=== PATIENT | female | born 1935 | race Caucasian/White ===

== ENCOUNTER 2017-02-02 22:46 | Emergency (ER) | payer MEDICARE, OTHER ==
[2017-02-02] MEDS ORDERED: Sodium Chloride 0.9% 1,000 ML ONE (22:53)
[2017-02-02] MEDS ORDERED: Sodium Chloride 0.9% 5 ML Syringe FLUSH PRN (23:00)
[2017-02-02] MEDS ORDERED: Ondansetron 4 MG/2 ML SDV ONE (23:19)
[2017-02-02] MEDS ORDERED: Ondansetron 4 MG/2 ML SDV IVPUSH ONE (23:22)
[2017-02-02] MEDS ORDERED: Sodium Chloride 0.9% 1,000 ML IV ONE (23:23)
--- NOTE | 2017-02-02 23:46 | EDM.PDOC ---
ED HPI GENERAL MEDICAL PROBLEM - General Chief Complaint: General Stated Complaint: n/v, fever Time Seen by Provider: 02/02/17 23:11 Source of Information: Reports: Patient, Family (son, dtr-n-law) History Limitations: Reports: No Limitations - History of Present Illness INITIAL COMMENTS - FREE TEXT/NARRATIVE: Patient presents with fever and several episodes of vomiting that started 12 hours ago. She hasn't kept anything down since breakfast. She has a cough that family says is chronic with her COPD. She denies dysuria but has some suprapubic pain. Temp was 101 at home. - Related Data Allergies Allergy/AdvReac Type Severity Reaction Status Date / Time hydrochlorothiazide Allergy Nausea and Verified 02/02/17 22:51 Vomiting latex Allergy Rash Verified 02/02/17 22:51 Tetanus Vaccines and Toxoid Allergy Cannot Verified 02/02/17 22:51 [Tetanus Vaccines & Toxoid] Remember Home Meds: Home Meds Acetaminophen [Tylenol Arthritis Pain] 1,300 mg PO Q8H PRN 01/31/15 [History] Cholecalciferol (Vitamin D3) [Vitamin D3] 1 cap PO ASDIRECTED 01/31/15 [History] Famotidine [Pepcid] 20 mg PO BID 01/31/15 [History] Gabapentin [Neurontin] 300 mg PO BID 01/31/15 [History] Insulin Glarg,Human.Rec.Analog [LantUS Solostar] 12 units SQ DAILY 01/31/15 [ History] Multivitamin [Multi-Vitamin Daily] 1 tab PO DAILY 01/31/15 [History] Sertraline [Zoloft] 100 mg PO DAILY 01/31/15 [History] atorvaSTATin [Lipitor] 10 mg PO BEDTIME 01/31/15 [History] traZODone 50 mg PO BEDTIME 01/31/15 [History] Aspirin [Ecotrin] 325 mg PO BID 02/06/15 [History] Allopurinol [Allopurinol] 100 mg PO DAILY 02/03/17 [History] Calcitriol [Rocaltrol] 0.25 mcg PO DAILY 02/03/17 [History] Calcium Citrate/Vitamin D3 [Calcium Citrate + D] 1 tab PO DAILY 02/03/17 [ History] Folic Acid 1 mg PO BID 02/03/17 [History] Xxvit E 400 intnl unit PO DAILY 02/03/17 [History] traZODone 50 mg PO BEDTIME 02/03/17 [History] Past Medical History Other Gastrointestinal History: 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 Other Genitourinary History: CRF Other Musculoskeletal History: Previous shoulder fracture, limited mobility to left upper extremity - Past Surgical History Other Musculoskeletal Surgeries/Procedures:: recent ankle surgery Social & Family History - Tobacco Use Smoking Status *Q: Former Smoker Years of Tobacco use: 50 Used Tobacco, but Quit: Yes Month Tobacco Last Used: 2012 Second Hand Smoke Exposure: Yes - Recreational Drug Use Recreational Drug Use: No ED ROS GENERAL - Review of Systems Review Of Systems: See Below Constitutional: Reports: Fever, Malaise HEENT: Denies: Vision Change Respiratory: Reports: Cough (chronic). Denies: Shortness of Breath Cardiovascular: Denies: Chest Pain, Lightheadedness, Syncope GI/Abdominal: Reports: Nausea, Vomiting : Denies: Dysuria, Flank Pain Musculoskeletal: Reports: No Symptoms Skin: Denies: Cyanosis, Jaundice, Mottled, Pallor, Diaphoresis Neurological: Denies: Confusion, Dizziness, Seizure, Syncope, Trouble Speaking Psychiatric: Denies: Agitation, Anxiety, Confusion ED EXAM, GENERAL - Physical Exam Exam: See Below Exam Limited By: No Limitations General Appearance: Alert, WD/WN, No Apparent Distress Eye Exam: Bilateral Eye: EOMI, Normal Inspection, PERRL Ears: Normal External Exam, Hearing Grossly Normal Nose: Normal Inspection, No Blood Throat/Mouth: Normal Inspection, Normal Lips, Normal Voice, No Airway Compromise Head: Atraumatic, Normocephalic Neck: Normal Inspection, Supple, Non-Tender, Full Range of Motion Respiratory/Chest: No Respiratory Distress, Crackles (bilat bases (mild to mod) unknown if this is acute or chronic) Cardiovascular: Normal Peripheral Pulses, Regular Rate, Rhythm, No Murmur GI/Abdominal: Normal Bowel Sounds, Soft, No Organomegaly, No Distention, Tender (lower abdomen) Back Exam: Normal Inspection, Full Range of Motion. No: CVA Tenderness (L), CVA Tenderness (R) Extremities: Normal Inspection, Normal Range of Motion, Non-Tender, No Pedal Edema Neurological: Alert, Oriented, Normal Cognition (some sign of chronic short- term memory loss per family), No Motor/Sensory Deficits Psychiatric: Normal Affect, Normal Mood Skin Exam: Warm, Dry, Intact, Normal Color, No Rash Course - Vital Signs Last Recorded V/S: Last Vital Signs Temp 101.8 F H 02/02/17 23:10 Pulse 96 02/02/17 23:12 Resp 22 H 02/02/17 23:12 BP 113/50 L 02/02/17 23:13 Pulse Ox 93 L 02/02/17 23:12 - Orders/Labs/Meds Meds: Medications Discontinued Medications Generic Name Dose Route Start Last Admin Trade Name Trisha PRN Reason Stop Dose Admin Sodium Chloride Confirm 02/02/17 22:53 Normal Saline Administered 02/02/17 22:54 Dose 1,000 mls @ as directed .ROUTE .STK-MED ONE - Re-Assessments/Exams Free Text/Narrative Re-Assessment/Exam: 02/03/17 00:16 Giving IV fluids and Zofran now. 02/03/17 00:49 Fluids are in and CXR doesn't look like anything acute to me; will wait for rad report. No UTI. WBC is normal. Temp came down nicely. Patient says she feels like trying to eat or drink something. 02/03/17 01:12 Patient eating a little and drank a half cup of water. When we took off the oxygen her sats dropped a bit but then remained steady 87-88%. With her COPD I' m not sure where her baseline is and her family doesn't know either. She seems quite comfortable at this level. Her temperature has improved significantly with the fluids and will give some Tylenol now. We have ruled out pneumonia and UTI, WBC is normal but with left shift (although ANC is normal). Will have her follow up in 1-2 days with her PCP for recheck. Discussed findings and recommendations with patient and her family. Patient stable at discharge. Departure - Departure Time of Disposition: 01:20 Disposition: Home, Self-Care 01 Condition: Good Clinical Impression: Dehydration Fever Qualifiers: Encounter type: initial encounter - Discharge Information Forms: ED Department Discharge Additional Instructions: 1. Try to drink 8 cups of water each day. 2. Take the Zofran as directed of you have nausea or vomiting again. 3. Follow up with your PCP on Thursday, sooner if fever, vomiting or other worsening. 4. Return to ER as needed.
[2017-02-03] MEDS ORDERED: Ondansetron 4 MG/2 ML SDV IVPUSH ONE (01:21)
[2017-02-03] MEDS ORDERED: Acetaminophen 500 MG Tab PO ONE (01:24)
[2017-02-03] MEDS ORDERED: Acetaminophen 325 MG Tab ONE (01:25)
[2017-02-03 01:31] VITALS: BP 97/47
== END 2017-02-03 01:47 | disposition home or self-care (01) ==
LOC: KA.ED 22:46
DX: E86.0 Dehydration (principal); R50.9 Fever, unspecified; N18.9 Chronic kidney disease, unspecified; Z91.040 Latex allergy status; Z88.8 Allergy status to other drugs, medicaments and biological substances; Z79.4 Long term (current) use of insulin; Z79.899 Other long term (current) drug therapy; Z87.891 Personal history of nicotine dependence
CPT/HCPCS: 36415; 71020; 80048; 81001; 82962; 83605; 85025; 87040; 96361; 96374; 96376; 99284; A9270; J2405; J7030

== ENCOUNTER 2021-02-24 00:05 | Observation (INO) | payer MEDICARE, OTHER ==
[2021-02-24 01:03] LABS: ANION GAP 13.6 mmol/L (5-15); CHLORIDE,CL 100 mmol/L (98-107); SODIUM,NA 139 mmol/L (136-145)
--- NOTE | 2021-02-24 01:06 | EDM.PDOC ---
ED HPI GENERAL MEDICAL PROBLEM - General Chief Complaint: Respiratory Problem Stated Complaint: low oxygenation Time Seen by Provider: 02/24/21 00:44 Source of Information: Reports: Patient, Long Term Records History Limitations: Reports: No Limitations - History of Present Illness INITIAL COMMENTS - FREE TEXT/NARRATIVE: Patient presents from [place] with report of low sats. She has a little cough that sounds loose. She denies dyspnea. She denies any chronic lung or heart problems. She has never needed oxygen before but today her sats dropped to 63%. They put oxygen on at 2 liters then up to 4 liters. She is 92% on 4 liters currently. 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: Oxygen - Related Data Allergies Allergy/AdvReac Type Severity Reaction Status Date / Time hydrochlorothiazide Allergy Nausea and Verified 02/24/21 00:48 Vomiting latex Allergy Rash Verified 02/24/21 00:48 Tetanus Vaccines and Toxoid Allergy Cannot Verified 02/24/21 00:48 [Tetanus Vaccines & Toxoid] Remember Home Meds: Home Meds Acetaminophen [Tylenol Arthritis Pain] 1,300 mg PO Q8H PRN 01/31/15 [History] Cholecalciferol (Vitamin D3) [Vitamin D3] 1 cap PO ASDIRECTED 01/31/15 [History] Famotidine [Pepcid] 20 mg PO BID 01/31/15 [History] Gabapentin [Neurontin] 300 mg PO BID 01/31/15 [History] Insulin Glarg,Human.Rec.Analog [LantUS Solostar] 16 units SQ DAILY 01/31/15 [History] Multivitamin [Multi-Vitamin Daily] 1 tab PO DAILY 01/31/15 [History] Sertraline [Zoloft] 100 mg PO DAILY 01/31/15 [History] atorvaSTATin [Lipitor] 10 mg PO BEDTIME 01/31/15 [History] Aspirin [Ecotrin EC] 325 mg PO DAILY 02/06/15 [History] Calcitriol [Rocaltrol] 0.25 mcg PO ASDIRECTED 02/03/17 [History] Calcium Citrate/Vitamin D3 [Calcium Citrate + D] 1 tab PO DAILY 02/03/17 [History] Folic Acid 2 tab PO DAILY 02/03/17 [History] allopurinoL [Allopurinol] 300 mg PO DAILY 02/03/17 [History] traZODone 50 mg PO BEDTIME 02/03/17 [History] Docusate Sodium 100 mg PO BID PRN 10/03/18 [History] Ondansetron [Ondansetron ODT] 4 mg PO Q6H PRN 02/24/21 [History] Semaglutide [Ozempic] 0.25 mg SQ Q7D 02/24/21 [History] tiZANidine [Zanaflex] 2 mg PO DAILY 02/24/21 [History] Past Medical History Respiratory History: Reports: Other (See Below) Other Respiratory History: smoker Gastrointestinal History: Reports: Other (See Below) Other Gastrointestinal History: 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 great and second toe on L foot Psychiatric History: Reports: Depression Endocrine/Metabolic History: Reports: Hypothyroidism, IDDM Dermatologic History: Reports: Other (See Below) Other Dermatologic History: brusing to arms - Past Surgical History Musculoskeletal Surgical History: Reports: Amputation, Other (See Below) Other Musculoskeletal Surgeries/Procedures:: recent ankle surgery. great and second toe on L foot Social & Family History - Caffeine Use Caffeine Use: Reports: Coffee, Soda ED ROS GENERAL - Review of Systems Review Of Systems: See Below Constitutional: Denies: Fever, Chills, Malaise, Weakness HEENT: Denies: Ear Pain, Throat Pain, Vision Change Respiratory: Reports: Cough. Denies: Shortness of Breath Cardiovascular: Denies: Chest Pain, Lightheadedness, Syncope Endocrine: Reports: Other (She started a new weekly insulin injection Semaglutide on Thursday, but didn't like it; she says gave her nausea and no appetite.) GI/Abdominal: Reports: Decreased Appetite, Nausea. Denies: Abdominal Pain, Vomiting : Denies: Dysuria, Flank Pain Musculoskeletal: Denies: Neck Pain, Shoulder Pain, Arm Pain, Back Pain, Hand Pain Skin: Denies: Cyanosis, Jaundice, Mottled, Pallor, Diaphoresis Neurological: Denies: Confusion, Dizziness, Seizure, Syncope, Trouble Speaking, Difficulty Walking Psychiatric: Denies: Agitation, Anxiety, Confusion ED EXAM, GENERAL - Physical Exam Exam: See Below Exam Limited By: No Limitations General Appearance: Alert, WD/WN, No Apparent Distress Eye Exam: Bilateral Eye: EOMI, Normal Inspection, PERRL Ears: Normal External Exam, Hearing Grossly Normal Nose: Normal Inspection, No Blood Throat/Mouth: Normal Inspection, Normal Lips, Normal Voice, No Airway Compromise Head: Atraumatic, Normocephalic Neck: Normal Inspection, Full Range of Motion Respiratory/Chest: No Respiratory Distress, Crackles (There are mild crackles in both lungs with an intermittent rub sound bilat). No: Rhonchi, Wheezing, Stridor Cardiovascular: Regular Rate, Rhythm, No Murmur GI/Abdominal: Soft, Non-Tender, No Organomegaly, No Distention, Other (long-term ostomy present left abdomen from ischemic bowel years ago) Back Exam: Normal Inspection, Full Range of Motion. No: CVA Tenderness (L), CVA Tenderness (R) Extremities: Normal Inspection, Normal Range of Motion, Non-Tender, No Pedal Edema Neurological: Alert, Oriented, Normal Cognition, No Motor/Sensory Deficits Psychiatric: Normal Affect, Normal Mood Skin Exam: Warm, Dry, Intact, Normal Color, No Rash Course - Vital Signs Last Recorded V/S: Last Vital Signs Temp 97.3 F 02/24/21 00:05 Pulse 79 02/24/21 02:29 Resp 20 02/24/21 02:29 BP 104/69 02/24/21 02:29 Pulse Ox 93 L 02/24/21 02:29 - Orders/Labs/Meds Orders: Active Orders 24 hr Category Date Time Status Patient Status [ADT] Routine ADT 02/24/21 02:29 Ordered Chest 2V [CR] Stat Exams 02/24/21 00:40 Ordered Labs: Laboratory Tests 02/24/21 02/24/21 02/24/21 Range/Units 00:13 00:35 00:35 WBC 6.33 (5.00-10.00) 10^3/uL RBC 4.57 (3.80-5.50) 10^6/uL Hgb 13.3 (12.0-16.0) g/dL Hct 41.2 (37.0-47.0) % MCV 90.2 (82.0-92.0) fL MCH 29.1 (27.0-31.0) pg MCHC 32.3 (32.0-36.0) g/dL RDW 15.1 H (11.5-14.5) % Plt Count 107 L (150-400) 10^3/uL MPV 9.5 (7.4-10.4) fL Immature Gran % (Auto) 1.1 (0.0-5.0) % Neut % (Auto) 71.2 H (50.0-70.0) % Lymph % (Auto) 17.5 L (20.0-40.0) % Wagoner % (Auto) 9.6 H (2.0-8.0) % Eos % (Auto) 0.6 L (1.0-3.0) % Baso % (Auto) 0.0 (0.0-1.0) % Neut # (Auto) 4.50 (2.50-7.00) 10^3/uL Lymph # (Auto) 1.11 (1.00-4.00) 10^3/uL Wagoner # (Auto) 0.61 (0.10-0.80) 10^3/uL Eos # (Auto) 0.04 L (0.10-0.30) 10^3/uL Baso # (Auto) 0.00 (0.00-0.10) 10^3/uL Immature Gran # (Auto) 0.07 (0.00-0.50) 10^3/uL Sodium 139 (136-145) mmol/L Potassium 3.8 (3.5-5.1) mmol/L Chloride 100 (98-107) mmol/L Carbon Dioxide 29.2 (21.0-32.0) mmol/L Anion Gap 13.6 (5-15) mmol/L BUN 20 H (7-18) mg/dL Creatinine 1.98 H (0.51-1.17) mg/dL Est Cr Clr Drug Dosing TNP Estimated GFR (MDRD) 24 mL/min Glucose 212 H (70-140) mg/dL POC Glucose 192 H (70-140) mg/dL Lactic Acid (0.4-2.0) mmol/L Calcium 9.2 (8.7-10.3) mg/dL Total Bilirubin 0.4 (0.2-1.0) mg/dL AST 18 (15-37) U/L ALT 22 (14-63) U/L Alkaline Phosphatase 89 (46-116) U/L B-Natriuretic Peptide (0-100) pg/mL Total Protein 7.1 (6.4-8.2) g/dL Albumin 3.11 L (3.40-5.00) g/dL SARS-CoV-2 RNA (RAISSA) (NEGATIVE) 02/24/21 02/24/21 02/24/21 Range/Units 00:35 00:35 01:16 WBC (5.00-10.00) 10^3/uL RBC (3.80-5.50) 10^6/uL Hgb (12.0-16.0) g/dL Hct (37.0-47.0) % MCV (82.0-92.0) fL MCH (27.0-31.0) pg MCHC (32.0-36.0) g/dL RDW (11.5-14.5) % Plt Count (150-400) 10^3/uL MPV (7.4-10.4) fL Immature Gran % (Auto) (0.0-5.0) % Neut % (Auto) (50.0-70.0) % Lymph % (Auto) (20.0-40.0) % Wagoner % (Auto) (2.0-8.0) % Eos % (Auto) (1.0-3.0) % Baso % (Auto) (0.0-1.0) % Neut # (Auto) (2.50-7.00) 10^3/uL Lymph # (Auto) (1.00-4.00) 10^3/uL Wagoner # (Auto) (0.10-0.80) 10^3/uL Eos # (Auto) (0.10-0.30) 10^3/uL Baso # (Auto) (0.00-0.10) 10^3/uL Immature Gran # (Auto) (0.00-0.50) 10^3/uL Sodium (136-145) mmol/L Potassium (3.5-5.1) mmol/L Chloride (98-107) mmol/L Carbon Dioxide (21.0-32.0) mmol/L Anion Gap (5-15) mmol/L BUN (7-18) mg/dL Creatinine (0.51-1.17) mg/dL Est Cr Clr Drug Dosing Estimated GFR (MDRD) mL/min Glucose (70-140) mg/dL POC Glucose (70-140) mg/dL Lactic Acid 1.0 (0.4-2.0) mmol/L Calcium (8.7-10.3) mg/dL Total Bilirubin (0.2-1.0) mg/dL AST (15-37) U/L ALT (14-63) U/L Alkaline Phosphatase (46-116) U/L B-Natriuretic Peptide 19 (0-100) pg/mL Total Protein (6.4-8.2) g/dL Albumin (3.40-5.00) g/dL SARS-CoV-2 RNA (RAISSA) Negative (NEGATIVE) - Re-Assessments/Exams Free Text/Narrative Re-Assessment/Exam: 02/24/21 02:32 CBC, BNP, LACTIC ACID normal. CMP stable with BUN, Creat at her baseline compared with last two labs. CXR shows a nonspecific interstitial prominence; question interstitial edema versus atypical pneumonia. She is still at 90% on 4 liters. No evidence of PE. Discussed case with Zena Payton, JESSICA and will admit for observation. She will start an antibiotic with consideration of atypical pneumonia. Discussed findings and treatment plan with patient and she agrees with plan. Stable at admission. Covid negative. 02/24/21 02:41 Running an EKG to check QT interval for antibiotic options. 02/24/21 02:50 EKG NSR QT 378. Departure - Departure Time of Disposition: 02:31 Disposition: Refer to Observation Condition: Good Clinical Impression: Hypoxemia requiring supplemental oxygen, Productive cough - Discharge Information Forms: ED Department Discharge Sepsis Event Note (ED) - Evaluation Sepsis Screening Result: No Definite Risk - Focused Exam Vital Signs: Vital Signs Temp Pulse Resp BP Pulse Ox 02/24/21 02:29 79 20 104/69 93 L 02/24/21 01:30 85 16 112/65 92 L 02/24/21 01:15 16 91 L 02/24/21 01:00 87 18 104/62 91 L 02/24/21 00:05 97.3 F 92 20 116/62 83 L - My Orders Last 24 Hours: My Active Orders 02/24/21 00:40 Chest 2V [CR] Stat 02/24/21 02:29 Patient Status [ADT] Routine - Assessment/Plan Last 24 Hours: My Active Orders 02/24/21 00:40 Chest 2V [CR] Stat 02/24/21 02:29 Patient Status [ADT] Routine
[2021-02-24] MEDS ORDERED: Sodium Chloride 0.9% 10 ML Syringe FLUSH PRN (03:00)
[2021-02-24] MEDS ORDERED: Docusate Sodium 100 MG Cap PO PRN (03:05)
[2021-02-24] MEDS ORDERED: Acetaminophen 650 MG Tab.ER PO PRN (03:05)
[2021-02-24] MEDS ORDERED: Calcitriol 0.25 MCG Cap PO SCH (03:15)
[2021-02-24] MEDS ORDERED: Famotidine 20 MG Tab PO SCH ×2 (03:15→09:00)
[2021-02-24] MEDS ORDERED: Non-Formulary Medication 1 Each (Semaglutide [Ozempic] 1 MG/0.75 ML Pen.Injctr) SQ SCH (03:15)
[2021-02-24] MEDS ORDERED: Azithromycin 500 MG in Sodium Chloride 0.9% 250 ML IV SCH (03:30)
--- NOTE | 2021-02-24 08:43 | CR ---
[id number] RAD/RAD Chest PA And Lateral EXAM: RAD Chest PA And Lateral CLINICAL DATA: INCREASING OXYGEN DEMAND COMPARISON: CORRELATION IS MADE WITH FEBRUARY 03, 2017 FINDINGS: Mild interstitial prominence is seen This may represent fibrosis, edema, or pneumonia The cardiac silhouette is moderately enlarged but stable There is a stent graft of the abdominal aorta There are chronic changes of the left shoulder IMPRESSION: MINIMAL INTERSTITIAL DISEASE, LIKELY FIBROSIS Ramirez Abdi MD 02/24/21 0841 Thank you for allowing us to participate in the care of your patient.
[2021-02-24] MEDS ORDERED: Non-Formulary Medication 1 Each (Multivitamin [Multi-Vitamin Daily] 1 EACH Tablet) PO SCH (09:00)
[2021-02-24] MEDS ORDERED: Aspirin 325 MG Tab.EC PO SCH (09:00)
[2021-02-24] MEDS ORDERED: Non-Formulary Medication 1 Each (Cholecalciferol (Vitamin D3) [Vitamin D3] 2,000 UNIT Caps PO SCH (09:00)
[2021-02-24] MEDS ORDERED: Non-Formulary Medication 1 Each (Insulin Glarg,Human.Rec.Analog 100 UNITS/ML Pen) SQ SCH (09:00)
[2021-02-24] MEDS ORDERED: tiZANidine 2 MG Tab PO SCH ×2 (09:00→21:00)
[2021-02-24] MEDS ORDERED: Non-Formulary Medication 1 Each (Sertraline [Zoloft] 100 MG Tablet) PO SCH (09:00)
[2021-02-24] MEDS: Gabapentin 300 MG Cap PO SCH ×2 (09:26→21:37)
[2021-02-24] MEDS: Folic Acid 1 MG Tab PO SCH ×2 (09:26→21:38)
[2021-02-24] MEDS: Allopurinol 100 MG Tab PO SCH (09:26)
[2021-02-24] MEDS: Cholecalciferol (Vitamin D3) 25 MCG Tab PO SCH (09:26)
[2021-02-24] MEDS: Sertraline 50 MG Tab PO SCH (09:27)
[2021-02-24] MEDS: Multivitamins with Minerals/Iron/Folic Acid/Lycopene Tab PO SCH (09:28)
[2021-02-24] MEDS: Calcium Citrate/Vitamin D3 315 MG-250 Unit Tab PO SCH (09:28)
--- NOTE | 2021-02-24 11:07 | PCM.HP.2 ---
H&P History of Present Illness - General Date of Service: 02/24/21 Admit Problem/Dx: Admission Diagnosis/Problem Admission Diagnosis/Problem Hypoxemia requiring supplemental oxygen Source of Information: Patient, Old Records, RN - Related Data Allergies/Adverse Reactions: Allergies Allergy/AdvReac Type Severity Reaction Status Date / Time hydrochlorothiazide Allergy Nausea and Verified 02/24/21 00:48 Vomiting latex Allergy Rash Verified 02/24/21 00:48 levofloxacin Allergy Nausea and Verified 02/24/21 03:28 Vomiting Tetanus Vaccines and Toxoid Allergy Cannot Verified 02/24/21 00:48 [Tetanus Vaccines & Toxoid] Remember Home Medications: Home Meds Acetaminophen [Tylenol Arthritis Pain] 1,300 mg PO Q8H PRN 01/31/15 [History] Cholecalciferol (Vitamin D3) [Vitamin D3] 1 cap PO DAILY 01/31/15 [History] Famotidine [Pepcid] 20 mg PO Q48H 01/31/15 [History] Gabapentin [Neurontin] 300 mg PO BID 01/31/15 [History] Insulin Glarg,Human.Rec.Analog [LantUS Solostar] 20 units SQ DAILY 01/31/15 [History] Multivitamin [Multi-Vitamin Daily] 1 tab PO DAILY 01/31/15 [History] Sertraline [Zoloft] 100 mg PO DAILY 01/31/15 [History] atorvaSTATin [Lipitor] 10 mg PO BEDTIME 01/31/15 [History] Aspirin [Ecotrin EC] 325 mg PO DAILY 02/06/15 [History] Calcitriol [Rocaltrol] 0.25 mcg PO ASDIRECTED 02/03/17 [History] Calcium Citrate/Vitamin D3 [Calcium Citrate + D] 1 tab PO DAILY 02/03/17 [History] Folic Acid 1 tab PO BID 02/03/17 [History] allopurinoL [Allopurinol] 200 mg PO DAILY 02/03/17 [History] traZODone 50 mg PO BEDTIME 02/03/17 [History] Docusate Sodium 100 mg PO BID PRN 10/03/18 [History] Ondansetron [Ondansetron ODT] 4 mg PO Q6H PRN 02/24/21 [History] Semaglutide [Ozempic] 0.25 mg SQ Q7D 02/24/21 [History] tiZANidine [Zanaflex] 2 mg PO DAILY 02/24/21 [History] Albuterol/Ipratropium [DuoNeb 3.0-0.5 MG/3 ML] 3 ml NEB Q6HRRT #60 neb 02/25/21 [Rx] Apixaban [Eliquis] 2.5 mg PO BID 30 Days #30 tablet 02/25/21 [Rx] Past Medical History HEENT History: Reports: Impaired Vision Cardiovascular History: Reports: Aneurysm, Blood Clots/VTE/DVT, High Cholesterol, Hypertension, PVD Other Cardiovascular History: Pt is very poor historian, unsure but thinks she "may have had blood clot in left leg." Respiratory History: Reports: Bronchitis, Recurrent, Other (See Below) Other Respiratory History: smoker Gastrointestinal History: Reports: GERD, Other (See Below) Other Gastrointestinal History: 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 Pt states the fistula is "no good.". CKD stage 4 [employer] History: Reports: Musculoskeletal History: Reports: Amputation, RA, Other (See Below) Other Musculoskeletal History: Previous left shoulder fracture, limited mobility to left upper extremity,. h/o bursitis of left shoulder. h/o tendonitis. 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 Oncologic (Cancer) History: Reports: Basal Cell Carcinoma, Other (See Below) Other Oncologic History: Nose Dermatologic History: Reports: Other (See Below) Other Dermatologic History: brusing to arms - Past Surgical History Musculoskeletal Surgical History: Reports: Amputation, Other (See Below) Other Musculoskeletal Surgeries/Procedures:: recent ankle surgery. great and second toe on L foot Social & Family History - Tobacco Use Tobacco Use Status *Q: Former Tobacco User Years of Tobacco use: 62 Used Tobacco, but Quit: Yes Month/Year Tobacco Last Used: Sep 2017, pt not really sure, but "it's been 2-3 years." - Caffeine Use Caffeine Use: Reports: Coffee, Soda H&P Review of Systems - Review of Systems: Review Of Systems: See Below General: Denies: Fever, Chills, Malaise, Weakness, Fatigue, Night Sweats, Decreased Appetite HEENT: Reports: No Symptoms Pulmonary: Reports: Cough. Denies: Shortness of Breath, Sputum, Hemoptysis Cardiovascular: Denies: Chest Pain, Palpitations, Dyspnea on Exertion, Orthopnea, PND, Edema Gastrointestinal: Reports: No Symptoms Genitourinary: Reports: No Symptoms Musculoskeletal: Reports: No Symptoms Skin: Reports: No Symptoms Psychiatric: Reports: No Symptoms Neurological: Reports: No Symptoms Exam - Exam Exam: See Below - Vital Signs Vital Signs: Last Vital Signs Temp 97.2 F 02/24/21 06:42 Pulse 76 02/24/21 06:42 Resp 20 02/24/21 06:42 BP 104/59 L 02/24/21 06:42 Pulse Ox 90 L 02/24/21 09:00 Weight: 155 lb 1.6 oz - Exam Quality Assessment: Supplemental Oxygen General: Alert Neck: Supple, Trachea Midline Lungs: Rales, Wheezing (mild expiratory wheezing) Cardiovascular: Regular Rate, Regular Rhythm GI/Abdominal Exam: Normal Bowel Sounds, Soft, Non-Tender, Other (colostomy) (Female) Exam: Deferred Rectal (Female) Exam: Deferred Extremities: Normal Inspection, Non-Tender, No Pedal Edema. No: Schuyler's Sign, Leg Pain, Redness Skin: Warm, Dry, Intact Neuro Extensive - Mental Status: Alert Psychiatric: Alert, Normal Affect, Normal Mood - Patient Data Lab Results Last 24 hrs: Laboratory Results - last 24 hr 02/24/21 02/24/21 02/24/21 Range/Units 00:13 00:35 00:35 WBC 6.33 (5.00-10.00) 10^3/uL RBC 4.57 (3.80-5.50) 10^6/uL Hgb 13.3 (12.0-16.0) g/dL Hct 41.2 (37.0-47.0) % MCV 90.2 (82.0-92.0) fL MCH 29.1 (27.0-31.0) pg MCHC 32.3 (32.0-36.0) g/dL RDW 15.1 H (11.5-14.5) % Plt Count 107 L (150-400) 10^3/uL MPV 9.5 (7.4-10.4) fL Immature Gran % (Auto) 1.1 (0.0-5.0) % Neut % (Auto) 71.2 H (50.0-70.0) % Lymph % (Auto) 17.5 L (20.0-40.0) % [place] % (Auto) 9.6 H (2.0-8.0) % Eos % (Auto) 0.6 L (1.0-3.0) % Baso % (Auto) 0.0 (0.0-1.0) % Neut # (Auto) 4.50 (2.50-7.00) 10^3/uL Lymph # (Auto) 1.11 (1.00-4.00) 10^3/uL [place] # (Auto) 0.61 (0.10-0.80) 10^3/uL Eos # (Auto) 0.04 L (0.10-0.30) 10^3/uL Baso # (Auto) 0.00 (0.00-0.10) 10^3/uL Immature Gran # (Auto) 0.07 (0.00-0.50) 10^3/uL Sodium 139 (136-145) mmol/L Potassium 3.8 (3.5-5.1) mmol/L Chloride 100 (98-107) mmol/L Carbon Dioxide 29.2 (21.0-32.0) mmol/L Anion Gap 13.6 (5-15) mmol/L BUN 20 H (7-18) mg/dL Creatinine 1.98 H (0.51-1.17) mg/dL Est Cr Clr Drug Dosing TNP Estimated GFR (MDRD) 24 mL/min Glucose 212 H (70-140) mg/dL POC Glucose 192 H (70-140) mg/dL Lactic Acid (0.4-2.0) mmol/L Calcium 9.2 (8.7-10.3) mg/dL Total Bilirubin 0.4 (0.2-1.0) mg/dL AST 18 (15-37) U/L ALT 22 (14-63) U/L Alkaline Phosphatase 89 (46-116) U/L B-Natriuretic Peptide (0-100) pg/mL Total Protein 7.1 (6.4-8.2) g/dL Albumin 3.11 L (3.40-5.00) g/dL SARS-CoV-2 RNA (RAISSA) (NEGATIVE) 02/24/21 02/24/21 02/24/21 Range/Units 00:35 00:35 01:16 WBC (5.00-10.00) 10^3/uL RBC (3.80-5.50) 10^6/uL Hgb (12.0-16.0) g/dL Hct (37.0-47.0) % MCV (82.0-92.0) fL MCH (27.0-31.0) pg MCHC (32.0-36.0) g/dL RDW (11.5-14.5) % Plt Count (150-400) 10^3/uL MPV (7.4-10.4) fL Immature Gran % (Auto) (0.0-5.0) % Neut % (Auto) (50.0-70.0) % Lymph % (Auto) (20.0-40.0) % [place] % (Auto) (2.0-8.0) % Eos % (Auto) (1.0-3.0) % Baso % (Auto) (0.0-1.0) % Neut # (Auto) (2.50-7.00) 10^3/uL Lymph # (Auto) (1.00-4.00) 10^3/uL [place] # (Auto) (0.10-0.80) 10^3/uL Eos # (Auto) (0.10-0.30) 10^3/uL Baso # (Auto) (0.00-0.10) 10^3/uL Immature Gran # (Auto) (0.00-0.50) 10^3/uL Sodium (136-145) mmol/L Potassium (3.5-5.1) mmol/L Chloride (98-107) mmol/L Carbon Dioxide (21.0-32.0) mmol/L Anion Gap (5-15) mmol/L BUN (7-18) mg/dL Creatinine (0.51-1.17) mg/dL Est Cr Clr Drug Dosing Estimated GFR (MDRD) mL/min Glucose (70-140) mg/dL POC Glucose (70-140) mg/dL Lactic Acid 1.0 (0.4-2.0) mmol/L Calcium (8.7-10.3) mg/dL Total Bilirubin (0.2-1.0) mg/dL AST (15-37) U/L ALT (14-63) U/L Alkaline Phosphatase (46-116) U/L B-Natriuretic Peptide 19 (0-100) pg/mL Total Protein (6.4-8.2) g/dL Albumin (3.40-5.00) g/dL SARS-CoV-2 RNA (RAISSA) Negative (NEGATIVE) Result Diagrams: 02/25/21 07:15 02/25/21 07:15 Sepsis Event Note - Evaluation Sepsis Screening Result: No Definite Risk - Focused Exam Vital Signs: Vital Signs Temp Pulse Resp BP Pulse Ox Pulse Ox 02/24/21 09:00 90 L 02/24/21 06:42 97.2 F 76 20 104/59 L 92 L 02/24/21 03:03 97.3 F 76 20 113/68 92 L 02/24/21 03:01 93 L 02/24/21 02:29 79 20 104/69 93 L 02/24/21 01:30 85 16 112/65 92 L 02/24/21 01:15 16 91 L 02/24/21 01:00 87 18 104/62 91 L 02/24/21 00:05 97.3 F 92 20 116/62 83 L - Problem List (1) Hypoxemia requiring supplemental oxygen SNOMED Code(s): 616407710 ICD Code: R09.02 - HYPOXEMIA; Z99.81 - DEPENDENCE ON SUPPLEMENTAL OXYGEN Status: Acute (2) Acute respiratory failure with hypoxia SNOMED Code(s): 96326203, 657555173 ICD Code: J96.01 - ACUTE RESPIRATORY FAILURE WITH HYPOXIA Status: Acute Problem List Initiated/Reviewed/Updated: Yes Orders Last 24hrs: Active Orders 24 hr Category Date Time Status Patient Status [ADT] Routine ADT 02/24/21 02:29 Active Patient Status [ADT] Routine ADT 02/24/21 03:01 Active Oxygen Therapy [RC] DAILY Care 02/24/21 03:01 Active Up With Assistance [RC] DAILY Care 02/24/21 03:00 Active Vital Signs [RC] 03,07,11,15,19,23 Care 02/24/21 03:01 Active [employer] Diet [DIET] Diet 02/24/21 Breakfast Active Acetaminophen [Tylenol Arthritis Pain] Med 02/24/21 03:05 Active 1,300 mg PO Q8H PRN Aspirin [Ecotrin] Med 02/24/21 09:00 Active 325 mg PO DAILY Azithromycin [Zithromax] 500 mg Med 02/24/21 03:30 Active Sodium Chloride 0.9% [Normal Saline] 250 ml IV Q24H Calcium Citrate/Vitamin D3 [Calcium Citrate + D] Med 02/24/21 09:00 Active 1 tab PO DAILY Cholecalciferol (Vitamin D3) [Vitamin D3] Med 02/24/21 09:00 Active 50 mcg PO DAILY Docusate Sodium [Colace] Med 02/24/21 03:05 Active 100 mg PO BID PRN FA/Lycopene/Lut/MV,Ca,Iron,Min [Centrum] Med 02/24/21 09:00 Active 1 tab PO DAILY Famotidine [Pepcid] Med 02/24/21 09:00 Active 20 mg PO Q48H Folic Acid Med 02/24/21 09:00 Active 1 mg PO BID Gabapentin [Neurontin] Med 02/24/21 09:00 Active 300 mg PO BID Insulin Glargine,Hum.Rec.Anlog [Semglee Pen] Med 02/24/21 21:00 Active 20 unit SUBCUT BEDTIME Sertraline [Zoloft] Med 02/24/21 09:00 Active 100 mg PO DAILY Sodium Chloride 0.9% [Saline Flush] Med 02/24/21 03:00 Active 10 ml FLUSH Q8HR PRN allopurinoL [Zyloprim] Med 02/24/21 09:00 Active 200 mg PO DAILY atorvaSTATin [Lipitor] Med 02/24/21 21:00 Active 10 mg PO BEDTIME calcitrioL [Rocaltrol] Med 02/25/21 09:00 Active 0.25 mcg PO MoFr@0900 tiZANidine [Zanaflex] Med 02/24/21 21:00 Active 2 mg PO BEDTIME traZODone Med 02/24/21 21:00 Active 50 mg PO BEDTIME Saline Lock Insert [OM.PC] Routine Oth 02/24/21 03:00 Ordered Resuscitation Status Routine Resus Stat 02/24/21 03:00 Ordered EKG 12 Lead [EK] Stat Ther 02/24/21 02:36 Ordered Medication Orders Acetaminophen (Acetaminophen 650 Mg Tab.Er) 1,300 mg PO Q8H PRN PRN Reason: Pain Allopurinol (Allopurinol 100 Mg Tab) 200 mg PO DAILY [facility] Last Admin: 02/24/21 09:26 Dose: 200 mg Documented by: ULISES Aspirin (Aspirin 325 Mg Tab.Ec) 325 mg PO DAILY [facility] Last Admin: 02/24/21 09:26 Dose: 325 mg Documented by: ULISES Atorvastatin Calcium (Atorvastatin 10 Mg Tab) 10 mg PO BEDTIME [facility] Calcitriol (Calcitriol 0.25 Mcg Cap) 0.25 mcg PO MoFr@0900 [facility] Calcium Citrate (Calcium Citrate/Vitamin D3 315 Mg-250 Unit Tab) 1 tab PO DAILY [facility] Last Admin: 02/24/21 09:28 Dose: 1 tab Documented by: ULISES Cholecalciferol (Cholecalciferol (Vitamin D3) 25 Mcg Tab) 50 mcg PO DAILY [facility] Last Admin: 02/24/21 09:26 Dose: 50 mcg Documented by: ULISES Docusate Sodium (Docusate Sodium 100 Mg Cap) 100 mg PO BID PRN PRN Reason: Constipation Famotidine (Famotidine 20 Mg Tab) 20 mg PO Q48H [facility] Last Admin: 02/24/21 09:28 Dose: 20 mg Documented by: ULISES Folic Acid (Folic Acid 1 Mg Tab) 1 mg PO BID [facility] Last Admin: 02/24/21 09:26 Dose: 1 mg Documented by: ULISES Gabapentin (Gabapentin 300 Mg Cap) 300 mg PO BID [facility] Last Admin: 02/24/21 09:26 Dose: 300 mg Documented by: ULISES Azithromycin 500 mg/ Sodium (Chloride) 250 mls @ 250 mls/hr IV Q24H [facility] Last Admin: 02/24/21 03:53 Dose: 250 mls/hr Documented by: DANIELA Insulin Glargine (Insulin Glargine,Hum.Rec.Anlog 100 Unit/Ml 3 Ml Pen) 20 unit SUBCUT BEDTIME [facility] Multivitamins/Minerals (Multivitamins With Minerals/Iron/Folic Acid/Lycopene Tab) 1 tab PO DAILY [facility] Last Admin: 02/24/21 09:28 Dose: 1 tab Documented by: ULISES Sertraline HCl (Sertraline 50 Mg Tab) 100 mg PO DAILY [facility] Last Admin: 02/24/21 09:27 Dose: 100 mg Documented by: ULISES Sodium Chloride (Sodium Chloride 0.9% 10 Ml Syringe) 10 ml FLUSH Q8HR PRN PRN Reason: keep vein open Tizanidine HCl (Tizanidine 2 Mg Tab) 2 mg PO BEDTIME [facility] Trazodone HCl (Trazodone 50 Mg Tab) 50 mg PO BEDTIME [facility] Assessment/Plan Comment:: HPI summary: This is an 85 year old female resident of [facility] who was bro ught to the ER via EMS for acute hypoxia. Per senior care staff patient was complaining of dizziness with noted oxygen saturations in the 60%. She was placed on 4L NC with improvement in her symptoms. no known history of hypoxia and no history of chronic oxygen requirement. On arrival to ER patient was alert and in no distress. She reportedly asymptomatic with only complaints of a mild cough. She denied SOB or wheezing. She denied chronic lung or cardiac problems. ED work-up: - CBC- normal WBC count. mild increase in percent neutrophils - Renal and electrolytes at baseline - BNP normal. - lactic acid normal - Chest xray- initial radiology read questioning possible interstitial edema versus atypical pneumonia. - COVID negative. - EKG- NSR. normal QTc interval. - Vitals normal aside from hypoxia requiring 4L supplemental oxygen dropping to low 80s on room air. Hospital course: 02/24/21- Patient admitted during overnight hours with no overnight concerns. Given IV Azithromycin for question of atypical pneumonia. Patient tolerated well. Patient lying in bed with no complaints and is in no acute distress. She denies any chest pain, palpitations, SOB, difficulty breathing, wheezing. she reports a cough. lung with rales to the bases and mild expiratory wheezing t/o. She has been on telemetry with no tachycardia and remains in sinus rhythm. she reports a strong history of tobacco use 60 years at approximately 1PPD. No hi story of DVT or PE. Denies any lower extremity edema, pain, redness, or warmth. patient expresses desire to go back to [facility] today. Hospitalization problems: # Acute hypoxic respiratory failure- - requiring 4L supplemental oxygen - Etiology of hypoxia not entirely clear. plan for CT chest without contrast today - start duo Nebs # possible atypical pneumonia- question atypical pneumonia on initial radiology x-ray read - Patient given Azithromycin 500mg IV on admission. EKG with normal QTc. monitored on telemetry. - will assess continued azithromycin use pending CT findings. # COPD likely- strong history of tobacco use. Chronic bronchitis noted on problems list. - question possible acute exacerbation. - No PFTs in the past and is not typically on pharmacologic management. - start duonebs - consider corticosteroid burst pending CT findings. # CKD, stage 4 - at baseline. - avoid nephrotoxic agent- CT contrast, NSAIDs # Thrombocytopenia, chronic - mild. platelets at baseline. - monitor platelets daily with starting lovenox. discontinue if platelet drop below 100,000. Chronic, stable conditions: # type 2 DM- on ozempic weekly (recently started), Basaglar 20units at HS. # PVD- on ASA # HLD- lipitor # AAA- s/p AAA repair. on ASA # depression- zoloft 100mg. # Gout- allopurinol. # insomnia/sleep disorder- trazodone. # CKD-MBD- Calcitriol. # history of tobacco use. # Chronic left shoulder/arm pain- on tizanidine, gabapentin? # history of ischemic bowel- s/p Colon resection- colostomy MISC medications/vitamins/supplements- folic acid Hospitalization details: # FEN: SL. ADA diet. # PPX: change pepcid to daily for GI ppx and given medication profile. start lovenox ppx with renal dosing (platelets 107,000). Will hold ASA with starting lovenox # Code status: DNR/DNI # Disposition: - patient strongly desires to go back to [facility]. She however is agreeable to staying for further diagnostic work-up. Will continue observation for further diagnostic evaluation - CT chest today WITHOUT contrast due to renal function - Start duo nebs. - Wells low probability for PE. Will need to consider D-dimer if negative CT chest without clear etiology of Hypoxia. Unable to perform CTA of the chest due to renal impairment. limited resources available locally including ultrasound on the weekend or V/Q scan.
--- NOTE | 2021-02-24 15:07 | CT ---
[id number] CT/CT Chest WO IV Exam: CT Chest WO IV Clinical Data: HYPOXIA COMPARISON: CORRELATION IS MADE WITH THE CURRENT CHEST RADIOGRAPH FINDINGS: There is mild atelectasis at both lung bases. There is underlying centrilobular emphysema. There is no mediastinal mass or adenopathy There are heavy atheromatous calcifications There is moderate splenomegaly. There is dilated bowel in the upper abdomen The stomach is slightly distended. There is prominence of the thyroid bilaterally appearing stable since the CAT scan of July 2009 There is left-sided nephrolithiasis2 The stent graft of the aorta is seen There appears to be a left renal artery stent IMPRESSION: Bibasilar discoid atelectasis Underlying centrilobular emphysema Ramirez Abdi MD 02/24/21 [id number] Thank you for allowing us to participate in the care of your patient.
[2021-02-24] MEDS: predniSONE 20 MG Tab PO SCH (16:00)
[2021-02-24] MEDS ORDERED: Enoxaparin 30 MG/0.3 ML Syringe SUBCUT SCH (17:00)
[2021-02-24] MEDS: Albuterol/Ipratropium 3.0-0.5 MG/3 ML Neb Soln NEB SCH ×2 (17:30→22:18)
[2021-02-24] MEDS ORDERED: Insulin Glargine,Hum.Rec.Anlog 100 UNIT/ML 3 ML Pen SUBCUT SCH (21:00)
[2021-02-24] MEDS ORDERED: atorvaSTATin 10 MG Tab PO SCH (21:00)
[2021-02-24] MEDS ORDERED: traZODone 50 MG Tab PO SCH (21:00)
[2021-02-25] MEDS: Albuterol/Ipratropium 3.0-0.5 MG/3 ML Neb Soln NEB SCH ×2 (06:01→11:30)
[2021-02-25] MEDS: Multivitamins with Minerals/Iron/Folic Acid/Lycopene Tab PO SCH (08:25)
[2021-02-25] MEDS: predniSONE 20 MG Tab PO SCH (08:25)
[2021-02-25] MEDS: Cholecalciferol (Vitamin D3) 25 MCG Tab PO SCH (08:25)
[2021-02-25] MEDS: Sertraline 50 MG Tab PO SCH (08:25)
[2021-02-25] MEDS: Gabapentin 300 MG Cap PO SCH (08:25)
[2021-02-25] MEDS: Folic Acid 1 MG Tab PO SCH (08:26)
[2021-02-25] MEDS: Calcium Citrate/Vitamin D3 315 MG-250 Unit Tab PO SCH (08:26)
[2021-02-25] MEDS: Allopurinol 100 MG Tab PO SCH (08:26)
[2021-02-25 08:43] LABS: ANION GAP 13.9 mmol/L (5-15)
[2021-02-25] MEDS ORDERED: Calcitriol 0.25 MCG Cap PO SCH (09:00)
[2021-02-25] MEDS ORDERED: Famotidine 20 MG Tab PO SCH (09:00)
[2021-02-25] MEDS ORDERED: Apixaban 5 MG Tab PO SCH (11:00)
[2021-02-25 11:18] VITALS: BP 128/73
[2021-02-25 11:54] VITALS: PULSE 96
--- NOTE | 2021-02-26 10:36 | PCM.DCSUM1 ---
Discharge Summary - Discharge Data Discharge Date: 02/25/21 Discharge Disposition: DC/Tfer to SNF 03 Condition: Fair - Discharge Plan Prescriptions/Med Rec: Albuterol/Ipratropium [DuoNeb 3.0-0.5 MG/3 ML] 3 ml NEB Q6HRRT #60 neb Apixaban [Eliquis] 2.5 mg PO BID 30 Days #30 tablet Home Medications: Home Meds Acetaminophen [Tylenol Arthritis Pain] 1,300 mg PO Q8H PRN 01/31/15 [History] Cholecalciferol (Vitamin D3) [Vitamin D3] 1 cap PO DAILY 01/31/15 [History] Famotidine [Pepcid] 20 mg PO Q48H 01/31/15 [History] Gabapentin [Neurontin] 300 mg PO BID 01/31/15 [History] Insulin Glarg,Human.Rec.Analog [LantUS Solostar] 20 units SQ DAILY 01/31/15 [History] Multivitamin [Multi-Vitamin Daily] 1 tab PO DAILY 01/31/15 [History] Sertraline [Zoloft] 100 mg PO DAILY 01/31/15 [History] atorvaSTATin [Lipitor] 10 mg PO BEDTIME 01/31/15 [History] Aspirin [Ecotrin EC] 325 mg PO DAILY 02/06/15 [History] Calcitriol [Rocaltrol] 0.25 mcg PO ASDIRECTED 02/03/17 [History] Calcium Citrate/Vitamin D3 [Calcium Citrate + D] 1 tab PO DAILY 02/03/17 [History] Folic Acid 1 tab PO BID 02/03/17 [History] allopurinoL [Allopurinol] 200 mg PO DAILY 02/03/17 [History] traZODone 50 mg PO BEDTIME 02/03/17 [History] Docusate Sodium 100 mg PO BID PRN 10/03/18 [History] Ondansetron [Ondansetron ODT] 4 mg PO Q6H PRN 02/24/21 [History] Semaglutide [Ozempic] 0.25 mg SQ Q7D 02/24/21 [History] tiZANidine [Zanaflex] 2 mg PO DAILY 02/24/21 [History] Albuterol/Ipratropium [DuoNeb 3.0-0.5 MG/3 ML] 3 ml NEB Q6HRRT #60 neb 02/25/21 [Rx] Apixaban [Eliquis] 2.5 mg PO BID 30 Days #30 tablet 02/25/21 [Rx] - Discharge Summary/Plan Comment DC Time >30 min.: Yes Total # of Minutes for Discharge Time: 90 min - General Info Functional Status: Reports: Pain Controlled, Other (Hypoxic on ambulation) - Review of Systems General: Denies: Fever, Weakness HEENT: Reports: No Symptoms Pulmonary: Reports: Shortness of Breath. Denies: Cough, Sputum, Hemoptysis, Wheezing Cardiovascular: Reports: No Symptoms Gastrointestinal: Reports: No Symptoms Genitourinary: Reports: No Symptoms Musculoskeletal: Reports: No Symptoms Skin: Reports: No Symptoms Neurological: Reports: No Symptoms Psychiatric: Reports: No Symptoms - Patient Data Vitals - Most Recent: Last Vital Signs Temp 97.5 F 02/25/21 11:00 Pulse 96 02/25/21 11:30 Resp 20 02/25/21 11:00 BP 128/73 02/25/21 11:00 Pulse Ox 94 L 02/25/21 11:30 Weight - Most Recent: 155 lb 1.6 oz Lab Results - Last 24 hrs: Laboratory Results - last 24 hr 02/25/21 Range/Units 11:45 POC Glucose 229 H (70-140) mg/dL Med Orders - Current: Current Medications Discontinued Medications Acetaminophen (Acetaminophen 650 Mg Tab.Er) 1,300 mg PO Q8H PRN PRN Reason: Pain Albuterol/Ipratropium (Albuterol/Ipratropium 3.0-0.5 Mg/3 Ml Neb Soln) 3 ml NEB Q6HRRT [facility] Last Admin: 02/25/21 11:30 Dose: 3 ml Documented by: Allopurinol (Allopurinol 100 Mg Tab) 200 mg PO DAILY [facility] Last Admin: 02/25/21 08:26 Dose: 200 mg Documented by: Apixaban (Apixaban 5 Mg Tab) 2.5 mg PO BID [facility] Last Admin: 02/25/21 11:19 Dose: 2.5 mg Documented by: Aspirin (Aspirin 325 Mg Tab.Ec) 325 mg PO DAILY [facility] Last Admin: 02/24/21 09:26 Dose: 325 mg Documented by: Atorvastatin Calcium (Atorvastatin 10 Mg Tab) 10 mg PO BEDTIME [facility] Last Admin: 02/24/21 21:37 Dose: 10 mg Documented by: Calcitriol (Calcitriol 0.25 Mcg Cap) 0.25 mcg PO ASDIRECTED [facility] Calcitriol (Calcitriol 0.25 Mcg Cap) 0.25 mcg PO MoFr@0900 [facility] Last Admin: 02/25/21 08:25 Dose: 0.25 mcg Documented by: Calcium Citrate (Calcium Citrate/Vitamin D3 315 Mg-250 Unit Tab) 1 tab PO DAILY [facility] Last Admin: 02/25/21 08:26 Dose: 1 tab Documented by: Cholecalciferol (Cholecalciferol (Vitamin D3) 25 Mcg Tab) 50 mcg PO DAILY [facility] Last Admin: 02/25/21 08:25 Dose: 50 mcg Documented by: Docusate Sodium (Docusate Sodium 100 Mg Cap) 100 mg PO BID PRN PRN Reason: Constipation Last Admin: 02/25/21 08:30 Dose: 100 mg Documented by: Enoxaparin Sodium (Enoxaparin 30 Mg/0.3 Ml Syringe) 30 mg SUBCUT Q24H [facility] Last Admin: 02/24/21 17:35 Dose: 30 mg Documented by: Famotidine (Famotidine 20 Mg Tab) 20 mg PO Q48H [facility] Last Admin: 02/24/21 04:20 Dose: Not Given Documented by: Famotidine (Famotidine 20 Mg Tab) 20 mg PO Q48H [facility] Last Admin: 02/24/21 09:28 Dose: 20 mg Documented by: Famotidine (Famotidine 20 Mg Tab) 20 mg PO DAILY [facility] Last Admin: 02/25/21 08:25 Dose: 20 mg Documented by: Folic Acid (Folic Acid 1 Mg Tab) 1 mg PO BID [facility] Last Admin: 02/25/21 08:26 Dose: 1 mg Documented by: Gabapentin (Gabapentin 300 Mg Cap) 300 mg PO BID [facility] Last Admin: 02/25/21 08:25 Dose: 300 mg Documented by: Azithromycin 500 mg/ Sodium (Chloride) 250 mls @ 250 mls/hr IV Q24H [facility] Last Admin: 02/24/21 03:53 Dose: 250 mls/hr Documented by: Insulin Glargine (Insulin Glargine,Hum.Rec.Anlog 100 Unit/Ml 3 Ml Pen) 20 unit SUBCUT BEDTIME [facility] Last Admin: 02/24/21 21:38 Dose: 20 units Documented by: Multivitamins/Minerals (Multivitamins With Minerals/Iron/Folic Acid/Lycopene Tab) 1 tab PO DAILY [facility] Last Admin: 02/25/21 08:25 Dose: 1 tab Documented by: Non-Formulary Medication (Cholecalciferol (Vitamin D3) [Vitamin D3]) 1 cap PO DAILY [facility] Non-Formulary Medication (Multivitamin [Multi-Vitamin Daily]) 1 tab PO DAILY [facility] Non-Formulary Medication (Semaglutide [Ozempic]) 0.25 mg SQ Q7D [facility] Last Admin: 02/24/21 04:20 Dose: Not Given Documented by: Non-Formulary Medication (Sertraline [Zoloft]) 100 mg PO DAILY [facility] Prednisone (Prednisone 20 Mg Tab) 40 mg PO DAILY [facility] Last Admin: 02/25/21 08:25 Dose: 40 mg Documented by: Sertraline HCl (Sertraline 50 Mg Tab) 100 mg PO DAILY [facility] Last Admin: 02/25/21 08:25 Dose: 100 mg Documented by: Sodium Chloride (Sodium Chloride 0.9% 10 Ml Syringe) 10 ml FLUSH Q8HR PRN PRN Reason: keep vein open Last Admin: 02/24/21 22:24 Dose: 10 ml Documented by: Tizanidine HCl (Tizanidine 2 Mg Tab) 2 mg PO DAILY [facility] Tizanidine HCl (Tizanidine 2 Mg Tab) 2 mg PO BEDTIME [facility] Last Admin: 02/24/21 21:37 Dose: 2 mg Documented by: Trazodone HCl (Trazodone 50 Mg Tab) 50 mg PO BEDTIME [facility] Last Admin: 02/24/21 21:36 Dose: 50 mg Documented by: - Exam Quality Assessment: Reports: Supplemental Oxygen, DVT Prophylaxis General: Reports: Alert, Oriented, Cooperative, No Acute Distress Lungs: Reports: Clear to Auscultation. Denies: Crackles, Rales Cardiovascular: Reports: Regular Rate, Regular Rhythm GI/Abdominal Exam: Normal Bowel Sounds, Soft, Other (Colostomy) (Female) Exam: Deferred Back Exam: Denies: CVA Tenderness (L), CVA Tenderness (R) Skin: Reports: Warm, Dry, Intact Neurological: Reports: No New Focal Deficit Psy/Mental Status: Reports: Alert, Normal Affect, Normal Mood
== END 2021-02-25 13:30 ==
LOC: KA.ED 00:05 → KA.MS 02:29 → UNDOADMOB 02:45
PROVIDERS: ADMIT Nurse Practitioner Family; ATTEND Family Medicine
DX: J96.01 Acute respiratory failure with hypoxia (principal); J44.9 Chronic obstructive pulmonary disease, unspecified; N18.4 Chronic kidney disease, stage 4 (severe); D69.6 Thrombocytopenia, unspecified; E11.51 Type 2 diabetes mellitus with diabetic peripheral angiopathy without gangrene; E78.5 Hyperlipidemia, unspecified; F32.9 Major depressive disorder, single episode, unspecified; M10.9 Gout, unspecified; E78.00 Pure hypercholesterolemia, unspecified; I12.9 Hypertensive chronic kidney disease with stage 1 through stage 4 chronic kidney disease, or unspecified chronic kidney disease; K21.9 Gastro-esophageal reflux disease without esophagitis; E03.9 Hypothyroidism, unspecified; Z20.822 Contact with and (suspected) exposure to COVID-19; Z87.891 Personal history of nicotine dependence; Z99.81 Dependence on supplemental oxygen; Z79.899 Other long term (current) drug therapy; Z88.8 Allergy status to other drugs, medicaments and biological substances; Z91.040 Latex allergy status; Z88.7 Allergy status to serum and vaccine; Z79.4 Long term (current) use of insulin; Z79.82 Long term (current) use of aspirin
CPT/HCPCS: 36415; 71046; 71250; 80048; 80053; 82947; 83605; 83880; 85025; 85379; 93005; 94640; 96365; 96372; 99284; 99285-25; A9270-GY; G0378; J0456; J1650; J7050; J7512; J7620-GY; U0002

== ENCOUNTER 2023-11-17 10:01 | Inpatient (IN) | payer MEDICARE, OTHER ==
[2023-11-17 10:56] LABS: HEMATOCRIT 46.4 % (37.0-47.0); HEMOGLOBIN 14.8 g/dL (12.0-16.0); IMMATURE GRAN ABSOLUTE AUTO 0.37 10^3/uL (0.00-0.50); IMMATURE GRAN PERCENT AUTO 1.5 % (0.0-5.0); LYMPHOCYTES PERCENT AUTO 3.3 % (20.0-40.0); MEAN CORPUSCULAR HEMOGLOBIN 29.6 pg (27.0-31.0); MEAN CORPUSCULAR HGB CONC 31.9 g/dL (32.0-36.0); MEAN CORPUSCULAR VOLUME 92.8 fL (82.0-92.0); MEAN PLATELET VOLUME 9.2 fL (7.4-10.4); MONOCYTES ABSOLUTE AUTO 1.63 10^3/uL (0.10-0.80); MONOCYTES PERCENT AUTO 6.7 % (2.0-8.0); NEUTROPHILS ABSOLUTE AUTO 21.46 10^3/uL (2.50-7.00); NEUTROPHILS PERCENT AUTO 88.5 % (50.0-70.0); PLATELET COUNT,PLT 147 10^3/uL (150-400); RED CELL DISTRIBUTION WIDTH 15.1 % (11.5-14.5); WHITE BLOOD CELL COUNT,WBC 24.26 10^3/uL (5.00-10.00)
[2023-11-17 11:15] LABS: ALBUMIN 2.96 g/dL (3.40-5.00); ANION GAP 15.7 mmol/L (5-15); BILIRUBIN TOTAL 0.8 mg/dL (0.2-1.0); CARBON DIOXIDE,CO2 25.9 mmol/L (21.0-32.0); CREATININE 1.94 mg/dL (0.51-1.17); EST CRCL DRUG DOSING (CG) 20.24 mL/min; POTASSIUM,K 4.6 mmol/L (3.5-5.1); PROTEIN TOTAL,TP 7.5 g/dL (6.4-8.2)
[2023-11-17] MEDS: Sodium Chloride 0.9% 1,000 ML IV ONE (11:47)
[2023-11-17] MEDS: Cefepime 2 GM in Sodium Chloride 0.9% 50 ML IV ONE (11:56)
[2023-11-17] MEDS ORDERED: Ondansetron 4 MG/2 ML SDV IV PRN (13:38)
[2023-11-17] MEDS ORDERED: Acetaminophen 325 MG Tab PO PRN (13:38)
[2023-11-17] MEDS ORDERED: Melatonin 3 MG Tab PO PRN (13:38)
[2023-11-17] MEDS ORDERED: Albuterol 0.083% 2.5 MG/3 ML Neb Soln NEB PRN (13:38)
[2023-11-17] MEDS ORDERED: Morphine 2 MG/ML SYRINGE IVPUSH PRN (13:38)
[2023-11-17] MEDS ORDERED: Sennosides/Docusate Sodium 50-8.6 MG Tab PO PRN (15:23)
[2023-11-17] MEDS ORDERED: traMADol 50 MG Tab PO PRN (15:23)
[2023-11-17] MEDS ORDERED: Polyethylene Glycol 3350 Powder 17 GM Packet PO PRN (15:23)
[2023-11-17] MEDS ORDERED: 50% Dextrose in Water 50 ML Syringe IVPUSH PRN (15:32)
[2023-11-17] MEDS ORDERED: Glucagon,Human Recombinant 1 MG Vial IM PRN (15:32)
[2023-11-17] MEDS ORDERED: Loperamide 2 MG Cap PO PRN (15:49)
[2023-11-17] MEDS ORDERED: PEG 400/Hypromellose/Glycerin 15 ML Bottle EYEBOTH PRN (15:59)
[2023-11-17] MEDS: Furosemide 40 MG/4 ML VIAL IVPUSH SCH (16:00)
[2023-11-17] MEDS: VANCOmycin 1 GM/200 ML 1 GM in Premix Bag 1 BAG IV ONE (16:18)
[2023-11-17] MEDS: Gabapentin 300 MG Cap PO SCH (17:55)
[2023-11-17] MEDS: Insulin Lispro 100 Unit/ML 3 ML KwikPen SUBCUT SCH ×2 (17:55→17:56)
[2023-11-17] MEDS: Budesonide 0.5 MG/2 ML Neb Susp INH SCH (19:20)
[2023-11-17] MEDS: Albuterol/Ipratropium 3.0-0.5 MG/3 ML Neb Soln NEB SCH (19:20)
[2023-11-17] MEDS: Latanoprost 0.005% Ophth Soln 2.5 ML Bottle EYELF SCH (20:44)
[2023-11-17] MEDS: Diclofenac Sodium 1% Gel 100 GM Tube TOP SCH (20:45)
[2023-11-17] MEDS: Insulin Glargine,Hum.Rec.Anlog 100 UNIT/ML 3 ML Pen SUBCUT SCH (20:45)
[2023-11-17] MEDS: Donepezil 10 MG Tab PO SCH (20:46)
[2023-11-17] MEDS: rOPINIRole 0.25 MG Tab PO SCH (20:46)
[2023-11-17] MEDS: traZODone 50 MG Tab PO SCH (20:46)
[2023-11-17] MEDS ORDERED: TIZANIDINE 2 MG PO SCH (21:00)
[2023-11-17] MEDS ORDERED: atorvaSTATin 10 MG Tab PO SCH (21:00)
[2023-11-17] MEDS ORDERED: Acetaminophen 500 MG Tab PO SCH (21:00)
[2023-11-17 22:01] LABS: APPEARANCE,URINE SLIGHTLY CLOUDY (CLEAR); BILIRUBIN,URINE NEGATIVE (NEGATIVE); COLOR,URINE YELLOW (YELLOW); GLUCOSE,URINE NEGATIVE (NEGATIVE); KETONES,URINE NEGATIVE (NEGATIVE); NITRITE,URINE NEGATIVE (NEGATIVE); PROTEIN,URINE NEGATIVE (NEGATIVE); UROBILINOGEN,URINE 0.2 E.U./dL (0.2-1.0)
[2023-11-17 22:17] LABS: OCCULT BLOOD,URINE TRACE-INTACT (NEGATIVE)
[2023-11-17 22:21] LABS: LEUKOCYTE ESTERASE,URINE SMALL (NEGATIVE)
[2023-11-17 22:23] LABS: BACTERIA,URINE RARE /HPF (NONE TO FEW); EPITHELIAL CELLS,URINE RARE /LPF; RBC,URINE 0-5 /HPF (0-5)
[2023-11-17 22:25] LABS: AMORPHOUS SEDIMENT,URINE MODERATE /HPF (0/HPF)
[2023-11-17 22:33] LABS: GRANULAR CASTS,URINE RARE
[2023-11-17] MEDS: Cefepime 1 GM in Sodium Chloride 0.9% 50 ML IV SCH (23:33)
[2023-11-18 08:52] LABS: ALBUMIN 2.45 g/dL (3.40-5.00); ANION GAP 12.6 mmol/L (5-15); BILIRUBIN TOTAL 0.8 mg/dL (0.2-1.0); CALCIUM 8.7 mg/dL (8.7-10.3); CARBON DIOXIDE,CO2 27.9 mmol/L (21.0-32.0); CREATININE 1.96 mg/dL (0.51-1.17); EST CRCL DRUG DOSING (CG) 20.04 mL/min; MAGNESIUM 1.5 mg/dL (1.8-2.4); POTASSIUM,K 4.5 mmol/L (3.5-5.1); PROTEIN TOTAL,TP 6.8 g/dL (6.4-8.2)
[2023-11-18] MEDS: buPROPion 150 MG Tab.ER PO SCH (08:58)
[2023-11-18] MEDS ORDERED: Allopurinol 100 MG Tab PO SCH (09:00)
[2023-11-18] MEDS ORDERED: Venlafaxine 150 MG Cap.ER PO SCH (09:00)
[2023-11-18] MEDS ORDERED: VENLAFAXINE 75 MG PO SCH (09:00)
[2023-11-18] MEDS: VANCOmycin 500 MG/100 ML 500 MG in Premix Bag 1 BAG IV SCH (09:27)
[2023-11-18 09:33] LABS: BASOPHILS ABSOLUTE AUTO 0.01 10^3/uL (0.00-0.10); EOSINOPHILS ABSOLUTE AUTO 0.01 10^3/uL (0.10-0.30); HEMATOCRIT 39.5 % (37.0-47.0); HEMOGLOBIN 12.6 g/dL (12.0-16.0); IMMATURE GRAN ABSOLUTE AUTO 0.34 10^3/uL (0.00-0.50); IMMATURE GRAN PERCENT AUTO 1.7 % (0.0-5.0); LYMPHOCYTES ABSOLUTE AUTO 1.15 10^3/uL (1.00-4.00); LYMPHOCYTES PERCENT AUTO 5.6 % (20.0-40.0); MEAN CORPUSCULAR HEMOGLOBIN 29.6 pg (27.0-31.0); MEAN CORPUSCULAR HGB CONC 31.9 g/dL (32.0-36.0); MEAN CORPUSCULAR VOLUME 92.7 fL (82.0-92.0); MEAN PLATELET VOLUME 8.8 fL (7.4-10.4); MONOCYTES ABSOLUTE AUTO 1.08 10^3/uL (0.10-0.80); MONOCYTES PERCENT AUTO 5.3 % (2.0-8.0); NEUTROPHILS ABSOLUTE AUTO 17.79 10^3/uL (2.50-7.00); NEUTROPHILS PERCENT AUTO 87.4 % (50.0-70.0); PLATELET COUNT,PLT 112 10^3/uL (150-400); RED BLOOD CELL COUNT 4.26 10^6/uL (3.80-5.50); WHITE BLOOD CELL COUNT,WBC 20.38 10^3/uL (5.00-10.00)
[2023-11-18] MEDS: Piperacillin/Tazobactam 4.5 GM in Sodium Chloride 0.9% 100 ML IV ONE (11:00)
[2023-11-18] MEDS: Piperacillin/Tazobactam 4.5 GM in Sodium Chloride 0.9% 100 ML IV SCH (16:58)
[2023-11-18 18:03] LABS: EOSINOPHILS ABSOLUTE AUTO 0.02 10^3/uL (0.10-0.30); EOSINOPHILS PERCENT AUTO 0.1 % (1.0-3.0); HEMATOCRIT 40.9 % (37.0-47.0); HEMOGLOBIN 13.1 g/dL (12.0-16.0); IMMATURE GRAN ABSOLUTE AUTO 0.36 10^3/uL (0.00-0.50); LYMPHOCYTES ABSOLUTE AUTO 0.93 10^3/uL (1.00-4.00); LYMPHOCYTES PERCENT AUTO 5.1 % (20.0-40.0); MEAN CORPUSCULAR HEMOGLOBIN 29.7 pg (27.0-31.0); MEAN CORPUSCULAR VOLUME 92.7 fL (82.0-92.0); MEAN PLATELET VOLUME 8.8 fL (7.4-10.4); MONOCYTES ABSOLUTE AUTO 1.19 10^3/uL (0.10-0.80); MONOCYTES PERCENT AUTO 6.5 % (2.0-8.0); NEUTROPHILS ABSOLUTE AUTO 15.91 10^3/uL (2.50-7.00); NEUTROPHILS PERCENT AUTO 86.3 % (50.0-70.0); PLATELET COUNT,PLT 119 10^3/uL (150-400); RED BLOOD CELL COUNT 4.41 10^6/uL (3.80-5.50); WHITE BLOOD CELL COUNT,WBC 18.41 10^3/uL (5.00-10.00)
[2023-11-18] MEDS: Metoclopramide 10 MG/2 ML SDV IVPUSH SCH (18:57)
[2023-11-18] MEDS: Sodium Chloride 0.9% 1,000 ML IV SCH (18:57)
[2023-11-18] MEDS: Acetaminophen 325 MG Tab PO PRN (18:57)
[2023-11-18] MEDS: Famotidine 20 MG Tab PO SCH (21:04)
[2023-11-19] MEDS: Docusate Sodium 100 MG Cap PO PRN (08:34)
[2023-11-19 10:08] LABS: EOSINOPHILS ABSOLUTE AUTO 0.01 10^3/uL (0.10-0.30); EOSINOPHILS PERCENT AUTO 0.1 % (1.0-3.0); HEMATOCRIT 39.1 % (37.0-47.0); HEMOGLOBIN 12.3 g/dL (12.0-16.0); IMMATURE GRAN ABSOLUTE AUTO 0.09 10^3/uL (0.00-0.50); IMMATURE GRAN PERCENT AUTO 0.7 % (0.0-5.0); LYMPHOCYTES PERCENT AUTO 4.7 % (20.0-40.0); MEAN CORPUSCULAR HEMOGLOBIN 29.7 pg (27.0-31.0); MEAN CORPUSCULAR HGB CONC 31.5 g/dL (32.0-36.0); MEAN CORPUSCULAR VOLUME 94.4 fL (82.0-92.0); MEAN PLATELET VOLUME 9.5 fL (7.4-10.4); MONOCYTES ABSOLUTE AUTO 0.78 10^3/uL (0.10-0.80); MONOCYTES PERCENT AUTO 6.1 % (2.0-8.0); NEUTROPHILS ABSOLUTE AUTO 11.26 10^3/uL (2.50-7.00); NEUTROPHILS PERCENT AUTO 88.4 % (50.0-70.0); PLATELET COUNT,PLT 109 10^3/uL (150-400); RED BLOOD CELL COUNT 4.14 10^6/uL (3.80-5.50); WHITE BLOOD CELL COUNT,WBC 12.74 10^3/uL (5.00-10.00)
[2023-11-19 10:29] LABS: ANION GAP 16.4 mmol/L (5-15); CALCIUM 8.3 mg/dL (8.7-10.3); CARBON DIOXIDE,CO2 25.5 mmol/L (21.0-32.0); CREATININE 1.83 mg/dL (0.51-1.17); EST CRCL DRUG DOSING (CG) 21.46 mL/min; MAGNESIUM 1.6 mg/dL (1.8-2.4); POTASSIUM,K 3.9 mmol/L (3.5-5.1)
[2023-11-19] MEDS: Bumetanide 1 MG/4 ML MDV IVPUSH SCH (12:34)
[2023-11-19] MEDS: Piperacillin/Tazobactam 4.5 GM in Sodium Chloride 0.9% 100 ML IV SCH (12:54)
[2023-11-20 12:20] LABS: EOSINOPHILS ABSOLUTE AUTO 0.03 10^3/uL (0.10-0.30); EOSINOPHILS PERCENT AUTO 0.3 % (1.0-3.0); HEMOGLOBIN 13.6 g/dL (12.0-16.0); IMMATURE GRAN ABSOLUTE AUTO 0.06 10^3/uL (0.00-0.50); IMMATURE GRAN PERCENT AUTO 0.6 % (0.0-5.0); LYMPHOCYTES ABSOLUTE AUTO 0.86 10^3/uL (1.00-4.00); LYMPHOCYTES PERCENT AUTO 8.5 % (20.0-40.0); MEAN CORPUSCULAR HEMOGLOBIN 29.4 pg (27.0-31.0); MEAN CORPUSCULAR HGB CONC 31.6 g/dL (32.0-36.0); MEAN CORPUSCULAR VOLUME 92.9 fL (82.0-92.0); MEAN PLATELET VOLUME 9.9 fL (7.4-10.4); MONOCYTES PERCENT AUTO 7.9 % (2.0-8.0); NEUTROPHILS ABSOLUTE AUTO 8.41 10^3/uL (2.50-7.00); NEUTROPHILS PERCENT AUTO 82.7 % (50.0-70.0); PLATELET COUNT,PLT 158 10^3/uL (150-400); RED BLOOD CELL COUNT 4.63 10^6/uL (3.80-5.50); RED CELL DISTRIBUTION WIDTH 14.9 % (11.5-14.5); WHITE BLOOD CELL COUNT,WBC 10.16 10^3/uL (5.00-10.00)
[2023-11-20 12:31] LABS: CALCIUM 8.5 mg/dL (8.7-10.3); CARBON DIOXIDE,CO2 27.8 mmol/L (21.0-32.0); CREATININE 1.98 mg/dL (0.51-1.17); EST CRCL DRUG DOSING (CG) 19.83 mL/min; MAGNESIUM 1.8 mg/dL (1.8-2.4); POTASSIUM,K 3.8 mmol/L (3.5-5.1)
[2023-11-20] MEDS: Amoxicillin/Clavulanate K 500-125 MG Tab PO SCH (17:53)
[2023-11-21 07:31] LABS: HEMATOCRIT 45.7 % (37.0-47.0); HEMOGLOBIN 14.4 g/dL (12.0-16.0); RED BLOOD CELL COUNT 4.89 10^6/uL (3.80-5.50); WHITE BLOOD CELL COUNT,WBC 10.85 10^3/uL (5.00-10.00)
[2023-11-21 07:32] LABS: EOSINOPHILS ABSOLUTE AUTO 0.04 10^3/uL (0.10-0.30); EOSINOPHILS PERCENT AUTO 0.4 % (1.0-3.0); IMMATURE GRAN ABSOLUTE AUTO 0.07 10^3/uL (0.00-0.50); IMMATURE GRAN PERCENT AUTO 0.6 % (0.0-5.0); LYMPHOCYTES ABSOLUTE AUTO 1.37 10^3/uL (1.00-4.00); LYMPHOCYTES PERCENT AUTO 12.6 % (20.0-40.0); MEAN CORPUSCULAR HEMOGLOBIN 29.4 pg (27.0-31.0); MEAN CORPUSCULAR HGB CONC 31.5 g/dL (32.0-36.0); MEAN CORPUSCULAR VOLUME 93.5 fL (82.0-92.0); MEAN PLATELET VOLUME 9.9 fL (7.4-10.4); MONOCYTES ABSOLUTE AUTO 0.93 10^3/uL (0.10-0.80); MONOCYTES PERCENT AUTO 8.6 % (2.0-8.0); NEUTROPHILS ABSOLUTE AUTO 8.44 10^3/uL (2.50-7.00); NEUTROPHILS PERCENT AUTO 77.8 % (50.0-70.0); PLATELET COUNT,PLT 139 10^3/uL (150-400); RED CELL DISTRIBUTION WIDTH 14.6 % (11.5-14.5)
[2023-11-21 08:08] LABS: ANION GAP 14.7 mmol/L (5-15); CALCIUM 8.7 mg/dL (8.7-10.3); CARBON DIOXIDE,CO2 27.1 mmol/L (21.0-32.0); CREATININE 1.78 mg/dL (0.51-1.17); EST CRCL DRUG DOSING (CG) 22.06 mL/min; MAGNESIUM 1.9 mg/dL (1.8-2.4); POTASSIUM,K 3.8 mmol/L (3.5-5.1)
[2023-11-21] MEDS: Furosemide 40 MG/4 ML VIAL IVPUSH ONE (11:28)
[2023-11-21] MEDS: methylPREDNISolone Sodium Succinate 40 MG/1 ML SDV IVPUSH SCH (11:28)
[2023-11-21 11:51] LABS: ALBUMIN 2.38 g/dL (3.40-5.00); ANION GAP 11.8 mmol/L (5-15); CALCIUM 8.9 mg/dL (8.7-10.3); CARBON DIOXIDE,CO2 29.1 mmol/L (21.0-32.0); CREATININE 1.79 mg/dL (0.51-1.17); EST CRCL DRUG DOSING (CG) 21.94 mL/min; PHOSPHORUS 2.6 mg/dL (2.6-4.7); POTASSIUM,K 3.9 mmol/L (3.5-5.1)
[2023-11-22 13:31] VITALS: BP 149/81; PULSE 104
== END 2023-11-22 13:00 | DRG 871 ==
LOC: KA.ED 10:01 → KA.MS 11:43 → UNDOADMIN 12:45
PROVIDERS: ADMIT Family Medicine; ATTEND Family Medicine
DX: J44.9 Chronic obstructive pulmonary disease, unspecified (principal); A41.9 Sepsis, unspecified organism; R09.02 Hypoxemia; D72.9 Disorder of white blood cells, unspecified; J18.9 Pneumonia, unspecified organism; J96.21 Acute and chronic respiratory failure with hypoxia; I12.9 Hypertensive chronic kidney disease with stage 1 through stage 4 chronic kidney disease, or unspecified chronic kidney disease; J69.0 Pneumonitis due to inhalation of food and vomit; Z79.82 Long term (current) use of aspirin; J44.0 Chronic obstructive pulmonary disease with (acute) lower respiratory infection; N17.9 Acute kidney failure, unspecified; N39.0 Urinary tract infection, site not specified; Z88.8 Allergy status to other drugs, medicaments and biological substances; J44.1 Chronic obstructive pulmonary disease with (acute) exacerbation; I13.2 Hypertensive heart and chronic kidney disease with heart failure and with stage 5 chronic kidney disease, or end stage renal disease; N18.5 Chronic kidney disease, stage 5; G89.29 Other chronic pain; I50.9 Heart failure, unspecified; F32.A Depression, unspecified; E03.9 Hypothyroidism, unspecified; E78.00 Pure hypercholesterolemia, unspecified; K21.9 Gastro-esophageal reflux disease without esophagitis; E11.22 Type 2 diabetes mellitus with diabetic chronic kidney disease; E11.42 Type 2 diabetes mellitus with diabetic polyneuropathy; M10.9 Gout, unspecified; D72.829 Elevated white blood cell count, unspecified; B95.2 Enterococcus as the cause of diseases classified elsewhere; F03.90 Unspecified dementia, unspecified severity, without behavioral disturbance, psychotic disturbance, mood disturbance, and anxiety; M06.9 Rheumatoid arthritis, unspecified; D69.6 Thrombocytopenia, unspecified; R74.01 Elevation of levels of liver transaminase levels; Z88.1 Allergy status to other antibiotic agents; Z79.4 Long term (current) use of insulin; Z88.7 Allergy status to serum and vaccine; Z91.040 Latex allergy status; Z86.16 Personal history of COVID-19; Z79.899 Other long term (current) drug therapy; Z87.442 Personal history of urinary calculi; E21.3 Hyperparathyroidism, unspecified; Z79.51 Long term (current) use of inhaled steroids; Z87.891 Personal history of nicotine dependence
CPT/HCPCS: 36415; 71045; 71250; 74018; 80048; 80053; 80069; 80202; 81001; 82947; 83605; 83735; 83880; 84145; 84484; 85025; 87040; 87086; 87088; 87186; 92610-GN; 94640; 99223-GT; 99232-GT; 99233-GT; 99239-GT; 99284; 99285; A9270-GY; J0692; J1815-GY; J1940; J2543; J2765; J2920; J3370; J3490; J7030; J7620-GY; Q3014

== ENCOUNTER 2023-12-23 21:47 | Emergency (ER) | payer MEDICARE, OTHER ==
[2023-12-23] MEDS: Lidocaine/Epineph/Tetracaine 3 ML Syringe TOP ONE ×2 (22:15→22:50)
[2023-12-24 00:20] VITALS: BP 123/74; PULSE 85
== END 2023-12-24 00:10 ==
LOC: KA.ED 21:47
DX: S22.32XA Fracture of one rib, left side, initial encounter for closed fracture (principal); S01.01XA Laceration without foreign body of scalp, initial encounter; I12.9 Hypertensive chronic kidney disease with stage 1 through stage 4 chronic kidney disease, or unspecified chronic kidney disease; N18.9 Chronic kidney disease, unspecified; E78.00 Pure hypercholesterolemia, unspecified; E11.9 Type 2 diabetes mellitus without complications; E03.9 Hypothyroidism, unspecified; Z88.7 Allergy status to serum and vaccine; Z88.1 Allergy status to other antibiotic agents; Z91.040 Latex allergy status; Z88.8 Allergy status to other drugs, medicaments and biological substances; Z79.4 Long term (current) use of insulin; Z79.899 Other long term (current) drug therapy; Z86.16 Personal history of COVID-19; Z87.891 Personal history of nicotine dependence; W19.XXXA Unspecified fall, initial encounter
CPT/HCPCS: 12001; 70450; 71101; 99285; A9270; 99283